=== PATIENT | female | born 1990 | race Caucasian/White ===

== ENCOUNTER → 2019-02-02 | Outpatient (CLI) | payer BC ==
[2019-02-02 12:06] LABS: Basophils % (A) 1 %; Eosinophils # (A) 0.1 k/uL (0-0.7); Eosinophils % (A) 3 %; HGB 13.7 gm/dL (11.4-16.0); Lymphocytes # (A) 1.5 k/uL (1.0-4.8); Lymphocytes % (A) 39 %; MCH 34.6 pg (25.0-35.0); MCHC 33.3 g/dL (31.0-37.0); MCV 103.7 fL (80.0-100.0); Macrocytosis Slight; Mean Platelet Volume 6.6; Monocytes # (A) 0.3 k/uL (0-1.0); Monocytes % (A) 7 %; Neutrophils # (A) 1.8 k/uL (1.3-7.7); Neutrophils % (A) 48 %; Platelet Count 269 k/uL (150-450); RBC 3.95 m/uL (3.80-5.40); RDW 12.3 % (11.5-15.5); WBC 3.8 k/uL (3.8-10.6)
[2019-02-02 16:15] LABS: African American GFR (CKD) 99.4 (60.0-200.0); Albumin 4.5 g/dL (3.80-4.90); Albumin/Globulin Ratio 2.5 (1.60-3.17); Anion Gap 6.8 mmol/L (4.00-12.00); BUN/Creat Ratio 11.11 Ratio (12.00-20.00); Calcium 9.4 mg/dL (8.7-10.3); Carbon Dioxide 25.2 mmol/L (21.6-31.8); Chol/HDL Ratio 2.55; Globulin 1.8 g/dL (1.6-3.3); Potassium 4.3 mmol/L (3.5-5.5); Total Bilirubin 0.4 mg/dL (0.2-1.2); Total Protein 6.3 g/dL (6.2-8.2)
[2019-02-02 20:14] LABS: Hemoglobin A1C 4.4 % (4.0-6.0)
== END | disposition home or self-care (01) ==
LOC: LABWHC1 11:29
DX: Z13.21 Encounter for screening for nutritional disorder (principal); Z13.29 Encounter for screening for other suspected endocrine disorder; Z13.220 Encounter for screening for lipoid disorders; F10.10 Alcohol abuse, uncomplicated
CPT/HCPCS: 36415; 80053; 80061; 82306; 83036; 84443; 85025

== ENCOUNTER 2021-03-02 10:08 | Inpatient (IN) | payer BC ==
[2021-03-02] MEDS ORDERED: AMPICILLIN 2,000 MG in SODIUM CHLORIDE 0.9% 100 ML IVPB STA (10:42)
[2021-03-02] MEDS ORDERED: CARBOPROST TROMETHAMINE 250 MCG/ML 1 ML AMP IM PRN (10:42)
[2021-03-02] MEDS ORDERED: METHYLERGONOVINE 0.2 MG/ML 1 ML AMP IM PRN (10:42)
[2021-03-02] MEDS ORDERED: LIDOCAINE 0.5% (PF) 5 MG/ML (50 ML SDV) SQ PRN (10:42)
[2021-03-02] MEDS ORDERED: TERBUTALINE 1 MG/ML VIAL SQ PRN (10:42)
[2021-03-02] MEDS ORDERED: OXYTOCIN 10 UNIT/ML 1 ML VIAL IM PRN (10:42)
[2021-03-02] MEDS ORDERED: OXYTOCIN 30 UNITS/500 ML NS 30 UNIT in SALINE 1 500ML.BAG IV SCH ×2 (10:45→22:30)
[2021-03-02] MEDS ORDERED: BUTORPHANOL 1 MG/ML 1 ML VIAL IV PRN (10:54)
--- NOTE | 2021-03-02 10:54 | P.HPOB ---
History of Present Illness H&P Date: 03/02/21 Chief Complaint: IUP at 40-2/7 weeks, spontaneous rupture of membranes This is a 30-year-old at 40-2/7 weeks that presents to labor and delivery with complaints of spontaneous rupture of membranes around 1 AM. Patient noted the fluid to be clear. Patient denies contractions. Patient has been receiving routine care since the first trimester, patient has a known history of anxiety and depression which has been stable on Zoloft and trazodone. Patient is known group beta strep positive. On bloodwork this patient has a blood type of O+, rubella status immune, RPR is nonreactive, hep Luisa surface engine negative, HIV negative. Patient did have a normal gestational diabetes screen on 11/26. She received T dap on 11/26. Group beta strep cultures were positive as of 02/04 as stated above. Review of Systems Constitutional: Denies chills, Denies fatigue, Denies fever Cardiovascular: Reports leg edema Respiratory: Denies dyspnea Gastrointestinal: Denies constipation, Denies diarrhea, Denies nausea, Denies vomiting Genitourinary: Reports Past Medical History History of Any Multi-Drug Resistant Organisms: None Reported Smoking Status: Never smoker Medications and Allergies Home Medications Medication Instructions Recorded Confirmed Type Sertraline [Zoloft] 100 mg PO DAILY 03/02/21 03/02/21 History traZODone HCL 100 mg PO DAILY 03/02/21 03/02/21 History Allergies Allergy/AdvReac Type Severity Reaction Status Date / Time No Known Allergies Allergy Verified 03/02/21 10:09 Exam Osteopathic Statement: *. No significant issues noted on an osteopathic structural exam other than those noted in the History and Physical/Consult. Intake and Output 03/01/21 03/02/21 03/02/21 22:59 06:59 14:59 Other: Weight 99.79 kg Targeted physical exam is performed and state in general this is a well- nourished well-developed female in no acute distress, breathing is nonlabored, heart has regular rhythm, abdomen is gravid. On cervical exam she is 1/thick/high station vertex presentation. In nature confirms rupture of membranes. heart tones are noted to be category 1 and she is gaurang irregularly with uterine irritability. Assessment and Plan (1) Post-dates Current Visit: Yes Status: Acute Code(s): O48.0 - POST-TERM SNOMED Code(s): 75709954 (2) Positive GBS test Current Visit: Yes Status: Acute Code(s): B95.1 - STREPTOCOCCUS, GROUP B, [facility] Code(s): 589557063 (3) SROM (spontaneous rupture of membranes) Current Visit: Yes Status: Acute Code(s): WHG3182 - SNOMED Code(s): 708685441 Plan: 30-year-old at 40-2/7 weeks that presents with spontaneous rupture of membranes around 1 AM. Patient is counseled on group beta strep status and need for antibiotics. Patient states understanding. Patient is also counseled on need for Pitocin augmentation of labor given she ruptured approximately 10 hours ago. Patient states understanding. Options for analgesia discussed, patient declines.
[2021-03-02 11:38] LABS: Basophils % (A) 0 %; Eosinophils # (A) 0.1 k/uL (0-0.7); Eosinophils % (A) 1 %; HCT 33.9 % (34.0-46.0); HGB 11.9 gm/dL (11.4-16.0); Lymphocytes % (A) 13 %; MCH 32.8 pg (25.0-35.0); MCHC 35.1 g/dL (31.0-37.0); MCV 93.3 fL (80.0-100.0); Monocytes # (A) 0.3 k/uL (0-1.0); Monocytes % (A) 4 %; Neutrophils # (A) 6.2 k/uL (1.3-7.7); Neutrophils % (A) 79 %; Platelet Count 257 k/uL (150-450); RBC 3.63 m/uL (3.80-5.40); RDW 13.6 % (11.5-15.5); WBC 7.8 k/uL (3.8-10.6)
[2021-03-02 11:42] VITALS: RESP 16
[2021-03-02] MEDS: LACTATED RINGERS 1,000 ML IV SCH ×3 (14:15→22:51)
[2021-03-02] MEDS: AMPICILLIN 1,000 MG in SODIUM CHLORIDE 0.9% 50 ML IVPB SCH ×2 (16:01→20:05)
[2021-03-02] MEDS ORDERED: CITRIC ACID-SODIUM CITRATE 15 ML CUP PO ONE (20:17)
[2021-03-02] MEDS ORDERED: MORPHINE SULFATE (PF) 0.3 MG/0.3 ML SYR ONE (21:26)
[2021-03-02] MEDS ORDERED: OXYTOCIN 30 UNITS/500 ML NS BAG IV ONE (21:26)
[2021-03-02] MEDS ORDERED: KETOROLAC 15 MG/ML 1 ML VIAL ONE (21:26)
[2021-03-02] MEDS ORDERED: diphenhydrAMINE 50 MG/ML 1 ML VIAL IVP PRN ×2 (22:17)
[2021-03-02] MEDS ORDERED: SIMETHICONE 80 MG CHEWABLE PO PRN (22:17)
[2021-03-02] MEDS ORDERED: NALOXONE 0.4 MG/ML 1 ML VIAL IV PRN (22:17)
[2021-03-02] MEDS ORDERED: ONDANSETRON 4 MG/2 ML VIAL IVP PRN (22:17)
[2021-03-02] MEDS ORDERED: diphenhydrAMINE 25 MG CAP PO PRN (22:17)
[2021-03-02] MEDS ORDERED: ZOLPIDEM 5 MG TAB PO PRN (22:17)
[2021-03-02] MEDS ORDERED: diphenhydrAMINE 50 MG CAP PO PRN (22:17)
[2021-03-02] MEDS ORDERED: METOCLOPRAMIDE 5 MG/ML 2 ML VIAL IVP PRN (22:17)
--- NOTE | 2021-03-02 22:23 | P.OP ---
Date of Procedure: 03/02/21 Preoperative Diagnosis: IUP at 40 and 2, spontaneous rupture of membranes, arrest of descent and dilation Postoperative Diagnosis: Same Procedure(s) Performed: Primary low transverse section Anesthesia: spinal Surgeon: Pati Osborne Business Programmer #1: Celi Avalos Estimated Blood Loss (ml): 785 IV fluids (ml): 1,200 Urine output (ml): 100 Pathology: other (Placenta) Condition: stable Disposition: observation Indications for Procedure: 30-year-old at 40-2/7 weeks that presented to labor and delivery with complaints of rupture of membranes around 1 AM. Patient presented to labor and delivery around 11 AM, complaining of spontaneous rupture but no contractions. Patient was admitted to labor and delivery antibiotics were begun secondary to length of time from rupture of membranes, and positive group beta strep culture. Pitocin augmentation of labor was begun. Patient made 1 cm pattern changer and repairer 8 hours. Patient is counseled on primary section secondary to arrest of descent and dilation. Although frustrated patient understands and is willing to proceed. Operative Findings: Normal uterus tubes and ovaries were appreciated. Viable female delivered at 2143, weight of 9 lbs. 2 oz., Apgars of 8 and 9 at one and 5 minutes respect daily. Description of Procedure: Patient was taken back to the operating suite where spinal anesthesia was found to be adequate by the anesthesia department. She was then prepped and draped in normal sterile fashion in the dorsal supine position. Calixto catheter was placed under sterile technique. A Pfannenstiel skin incision was made with the scalpel and carried through to the underlying layer of fascia. The fascia was then incised in the midline and the incision was extended laterally. The superior aspect the fascial incision was then grasped bhavna clamps, elevated and underlying rectus muscles dissected off sharply. The inferior aspect the fascial incision was then grasped bhavna clamps, elevated and underlying rectus muscles dissected off sharply. The rectus muscles were in the midline the peritoneum was identified and entered. The bladder blade was then inserted into the pelvis. The vesicouterine peritoneum was identified and a bladder flap was created using sharp and blunt dissection. The bladder blade was then reinserted into the pelvis. Hysterotomy incision was made with the scalpel, the infant was encountered in a vertex presentation, clear fluid was appreciated. The umbilical cord was doubly clamped and cut and the was handed handed off to awaiting RN. The placenta was then delivered spontaneously intact with a three-vessel cord being noted. The uterus was then exteriorized from the abdomen. The uterine incision was closed 0 Vicryl in a running locked fashion from one lateral edge the other. A second imbricating suture was performed. 2 [id number] sutures were used to obtain hemostasis on the left-hand side of the uterine incision. The uterus was then returned to the abdomen. The gutters were cleared of all clots and debris. Hysterotomy incision was inspected and hemostasis was appreciated. The peritoneum was then loosely reapproximated. The rectus muscles were inspected and found to be hemostatic. The fascia was then closed with 0 Vicryl in a running fashion from one lateral edge the midline and the other lateral edge the midline. The subcu tissue was then irrigated found to be hemostatic and closed with 3-0 Vicryl in a running fashion. The skin was then closed with 4-0 Vicryl in a subarticular fashion. Steri-Strips and sterile dressings were applied. All counts were noted to be correct 2 at the end of the procedure. Patient and tolerated delivery well and are resting comfortably.
[2021-03-02] MEDS: ACETAMINOPHEN IV (For NPO) 1,000 MG in EMPTY BAG 1 BAG IVPB SCH (22:44)
[2021-03-03] MEDS: LACTATED RINGERS 1,000 ML IV SCH ×2 (00:43→20:26)
[2021-03-03] MEDS: ACETAMINOPHEN TAB 500 MG TAB PO SCH ×2 (01:32→19:37)
[2021-03-03] MEDS: IBUPROFEN 600 MG TAB PO SCH ×3 (04:26→21:08)
[2021-03-03] MEDS: ACETAMINOPHEN IV (For NPO) 1,000 MG in EMPTY BAG 1 BAG IVPB SCH (05:06)
[2021-03-03] MEDS ORDERED: IBUPROFEN IV 800 MG in SODIUM CHLORIDE 0.9% 250 ML IV SCH (06:00)
[2021-03-03 08:14] LABS: Basophils % (A) 0 %; Eosinophils # (A) 0.1 k/uL (0-0.7); Eosinophils % (A) 1 %; HCT 29.2 % (34.0-46.0); Lymphocytes # (A) 1.1 k/uL (1.0-4.8); Lymphocytes % (A) 11 %; MCH 32.5 pg (25.0-35.0); MCHC 33.5 g/dL (31.0-37.0); MCV 97.1 fL (80.0-100.0); Mean Platelet Volume 7.3; Monocytes # (A) 0.4 k/uL (0-1.0); Monocytes % (A) 4 %; Neutrophils # (A) 8.2 k/uL (1.3-7.7); Neutrophils % (A) 83 %; Platelet Count 193 k/uL (150-450); RBC 3.01 m/uL (3.80-5.40); RDW 13.2 % (11.5-15.5); WBC 9.9 k/uL (3.8-10.6)
[2021-03-03 08:21] LABS: HGB 9.8 gm/dL (11.4-16.0)
[2021-03-03] MEDS ORDERED: SERTRALINE 100 MG TAB PO SCH ×2 (09:00→21:00)
[2021-03-03] MEDS ORDERED: traZODone HCL 100 MG TAB PO SCH ×2 (09:00→21:00)
--- NOTE | 2021-03-03 09:00 | P.PN ---
Progress Note - Text Progress Note Date: 03/03/21 (131) Anesthesia Postop day 1 Subjective: Status Post section with Duramorph. Patient seen and examined. Doing well without complaint. VAS out of 10. No nausea or vomiting. Mild pruritus tolerable.. Afebrile. Gross lower extremity strength intact. Without apparent anesthetic complications. Objective: Vital signs reviewed Heart: Regular Rate Lungs: Good chest excursion Abdomen: Appears nondistended Assessment: Status post with Duramorph postop day 1 Plan: Continue current care with your medical management. Anticipated and the Duramorph around midnight tonight, you may see increased pain needs around this time.
--- NOTE | 2021-03-03 10:53 | P.PNOBGPC ---
Subjective - Subjective Patient reports: Reports appetite normal, Reports voiding normally, Reports pain well controlled, Reports ambulating normally : doing well Objective - Vital Signs Latest vital signs: Vital Signs Temp Pulse Resp BP Pulse Ox 03/03/21 09:00 98.3 F 91 16 107/69 97 03/03/21 04:00 98.6 F 87 16 110/72 03/03/21 00:30 86 16 114/56 99 03/03/21 00:02 96.9 F L 80 16 103/56 99 03/02/21 23:32 86 16 114/56 99 03/02/21 23:02 96 16 118/56 03/02/21 22:51 100 16 115/55 03/02/21 22:32 110 H 16 108/54 03/02/21 22:18 97.3 F L 103 H 16 108/53 99 03/02/21 11:20 98.3 F 100 16 123/62 Intake and Output 03/02/21 03/03/21 03/03/21 22:59 06:59 14:59 Intake Total 1700 Output Total 100 930 Balance 1600 -930 Intake: IV 1700 Output: Urine 100 900 Uretheral (Calixto) 400 Estimated Blood Loss 30 Other: # Voids 1 1 - Exam Abdomen: Present: normal appearance, soft. Absent: distention, tenderness Incision: Present: normal, dry, intact Uterus: Present: normal, firm (The uterine fundus as tonic and minimally tender below the umbilicus.) - Labs Labs: Abnormal Lab Results - Last 24 Hours (Table) 03/02/21 03/03/21 Range/Units 11:00 07:28 RBC 3.63 L 3.01 L (3.80-5.40) m/uL Hgb 9.8 L D (11.4-16.0) gm/dL Hct 33.9 L 29.2 L (34.0-46.0) % Neutrophils # 8.2 H (1.3-7.7) k/uL Assessment and Plan (1) Status post section Current Visit: Yes Status: Acute Code(s): Z98.891 - HISTORY OF UTERINE SCAR FROM PREVIOUS SURGERY SNOMED Code(s): 036534833 Plan: Continue routine postoperative and care. I have encouraged patient alessandra in the hallways the today at least 4 times if not more. I would anticipate discharge home tomorrow possibly pending no complications.
[2021-03-03] MEDS: SENNOSIDES-DOCUSATE SODIUM 1 EACH TAB PO SCH ×2 (15:10→19:37)
[2021-03-04] MEDS: ACETAMINOPHEN TAB 500 MG TAB PO SCH ×2 (01:53→12:01)
[2021-03-04] MEDS: SENNOSIDES-DOCUSATE SODIUM 1 EACH TAB PO SCH (07:43)
[2021-03-04] MEDS: IBUPROFEN 600 MG TAB PO SCH (07:43)
[2021-03-04 08:26] VITALS: BP 107/62; PULSE 88; TEMP 97.9
--- NOTE | 2021-03-04 09:31 | P.DS ---
Providers Date of admission: 03/02/21 10:45 Expected date of discharge: 03/04/21 Attending physician: Norma Hart Primary care physician: Stated None Hospital Course: This is a 30-year-old female 2 para 0010 EDC 02/28/2021 who presented at 40-2/7 weeks' with spontaneous amniorrhexis, clear fluid, in active labor. is remarkable for rubella status immune, blood type A+, group B strep cultures positive. Please see dictated history and physical for details. Antibiotic prophylaxis was started as well as oxytocin. Patient progressed through labor but had a failure to progress and decision was made to proceed with primary low transverse section. She gave to a liveborn female with scores of 8 and 9 at one and 5 minutes respectively. weighed 9 lbs. 2 oz. or 4150 g. Patient had received at least 3 doses of antibiotics prophylactically. Please see dictated operative note for details. This morning the patient is doing quite well. She is voiding, ambulating, passing flatus without difficulty. Vital signs are stable and she is afebrile. Incision is clean and dry, intact, Steri-Strips applied. Fundus is firm and in the midline, symmetric and 18 week size. Breasts are not engorged. Chest is clear in all barrow. Extremities are negative. Hurst infant is doing well, hearing test this morning. Enterprise Resource Planning Consultant has seen the baby. Patient is judged to be in very good condition for discharge home. She will follow-up with me in the office in 2 weeks for an incision check. I have reminded her no intercourse, tampons or douching. She will use [id number] Advil or Aleve, or Motrin as needed for pain. She will call with any fevers shakes or chills, foul smelling or copious lochia, with the passage of large blood clots, with any pain not alleviated by [id number]-[id number] products, or indeed with any concerns. Hurst infant will follow-up with hot roll laminator as per recommendations. Assessment: Doing well second postoperative day Patient Condition at Discharge: Good Plan - Discharge Summary Discharge Rx Participant: No New Discharge Prescriptions: No Action traZODone HCL 100 mg PO DAILY Sertraline [Zoloft] 100 mg PO DAILY Discharge Medication List Sertraline [Zoloft] 100 mg PO DAILY 03/02/21 [History] traZODone HCL 100 mg PO DAILY 03/02/21 [History] Follow up Appointment(s)/Referral(s): Norma Hart MD [STAFF PHYSICIAN] - 2 Weeks Discharge Disposition: HOME SELF-CARE
== END 2021-03-04 12:55 | disposition home or self-care (01) | DRG 788 ==
LOC: FBPOP 10:08 → 4FBP 10:45
PROVIDERS: ADMIT Obstetrics & Gynecology Obstetrics; ATTEND Obstetrics & Gynecology
PROC: 0KQM0ZZ Repair Perineum Muscle, Open Approach (ICD-10-PCS; 2021-03-02)
PROC: 3E033VJ Introduction of Other Hormone into Peripheral Vein, Percutaneous Approach (ICD-10-PCS; 2021-03-02)
PROC: 10D00Z1 Extraction of Products of Conception, Low, Open Approach (ICD-10-PCS; principal; 2021-03-02 21:00)
DX: O62.0 Primary inadequate contractions (principal); O48.0 Post-term pregnancy; O70.1 Second degree perineal laceration during delivery; O99.824 Streptococcus B carrier state complicating childbirth; O99.73 Diseases of the skin and subcutaneous tissue complicating the puerperium; L29.9 Pruritus, unspecified; Z20.822 Contact with and (suspected) exposure to COVID-19; O99.343 Other mental disorders complicating pregnancy, third trimester; F41.9 Anxiety disorder, unspecified; F32.9 Major depressive disorder, single episode, unspecified; Z37.0 Single live birth; Z3A.40 40 weeks gestation of pregnancy; Z79.899 Other long term (current) drug therapy
CPT/HCPCS: 59025; 84112; 85025; 86850; 86900; 86901; 99213

== ENCOUNTER → 2021-10-18 | Outpatient (CLI) | payer BC ==
--- NOTE | 2021-10-18 14:06 | XR ---
EXAMINATION TYPE: XR lumbar spine 2 or 3V DATE OF EXAM: 10/18/2021 CLINICAL HISTORY: pain TECHNIQUE: Three views of the lumbar spine are submitted. COMPARISON: None. FINDINGS: There are 5 lumbar type vertebral bodies identified. The lumbar spine shows satisfactory alignment w ithout evidence of acute fracture or dislocation. Vertebral body heights are within normal limits. Moderate degenerative narrowing L5-S1. Ventral spondylosis. The overlying soft tissue appears unrema rkable. IMPRESSION: No acute fracture or dislocation is seen in the lumbar spine. ICD 10 NO FRACTURE, INITIAL EVALUATION
== END | disposition home or self-care (01) ==
LOC: RADXRMAIN 12:57
PROVIDERS: ATTEND Family Medicine
DX: M43.06 Spondylolysis, lumbar region (principal)
CPT/HCPCS: 72100

== ENCOUNTER 2024-08-04 08:35 | Outpatient (CLI) | payer BC ==
[2024-08-04 10:00] VITALS: BP 127/71; PULSE 110; RESP 18; TEMP 97.7
== END 2024-08-04 09:47 | disposition home or self-care (01) ==
LOC: FBPOP 08:35
PROVIDERS: ATTEND Obstetrics & Gynecology
DX: Z53.9 Procedure and treatment not carried out, unspecified reason (principal)
CPT/HCPCS: 59025; 99213

== ENCOUNTER 2024-08-17 10:08 | Outpatient (CLI) | payer BC ==
[2024-08-17 10:40] LABS: Basophils % (A) 0 %; Eosinophils # (A) 0.2 k/uL (0-0.7); Eosinophils % (A) 2 %; HCT 33.8 % (34.0-46.0); HGB 10.7 gm/dL (11.4-16.0); Lymphocytes # (A) 1.5 k/uL (1.0-4.8); Lymphocytes % (A) 13 %; MCH 29.2 pg (25.0-35.0); MCHC 31.5 g/dL (31.0-37.0); MCV 92.7 fL (80.0-100.0); Monocytes # (A) 0.4 k/uL (0-1.0); Monocytes % (A) 4 %; Neutrophils # (A) 8.7 k/uL (1.3-7.7); Neutrophils % (A) 79 %; Platelet Count 308 k/uL (150-450); RBC 3.65 m/uL (3.80-5.40); RDW 15.1 % (11.5-15.5)
[2024-08-17 10:47] LABS: Appearance,Urine Cloudy (Clear); Bacteria,Urine Rare /hpf; Bilirubin,Urine Negative (Negative); Blood,Urine Negative (Negative); Color,Urine Light Yellow; Glucose,Urine (UA) Negative (Negative); Ketones,Urine Negative (Negative); Leukocyte Esterase,Urine Large (Negative); Mucus,Urine Rare /hpf; Nitrite,Urine Negative (Negative); Protein,Urine Trace (Negative); RBC,Urine 4 /hpf (0-5); Specific Gravity,Urine 1.014 (1.001-1.035); Squamous Epithelial Cell,Urine 6 /hpf (0-4); Urobilinogen,Urine <2.0 mg/dL (<2.0); WBC,Urine 15 /hpf (0-5)
[2024-08-17 10:51] LABS: ALT 15 U/L (4-34); AST 17 U/L (14-36); African American GFR (CKD) >90 (>60 ml/min/1.73 sqM); Blood Urea Nitrogen 9 mg/dL (7-17); LDH 127 U/L (120-246); Non-African American GFR(CKD) >90 (>60 ml/min/1.73 sqM); Uric Acid 3.8 mg/dL (3.7-7.4)
[2024-08-17 11:03] LABS: Creatinine,Urine Random 94.6 mg/dL; Protein/Creatinine Ratio,Urine 0.106
[2024-08-17 11:04] LABS: Creatinine,Urine Random 95.9 mg/dL
[2024-08-17 11:39] VITALS: BP 131/77; PULSE 99; RESP 16; TEMP 97.1
== END 2024-08-17 11:20 | disposition home or self-care (01) ==
LOC: FBPOP 10:08
PROVIDERS: ATTEND Obstetrics & Gynecology
DX: O13.9 Gestational [pregnancy-induced] hypertension without significant proteinuria, unspecified trimester (principal); Z3A.00 Weeks of gestation of pregnancy not specified
CPT/HCPCS: 59025; 81001; 82565; 82570; 83615; 84156; 84450; 84460; 84520; 84550; 85025

== ENCOUNTER 2024-08-28 08:46 | Outpatient (CLI) | payer BC ==
[2024-08-28 09:07] VITALS: BP 121/66; RESP 18; TEMP 97.2
--- NOTE | 2024-08-28 09:46 | US ---
EXAMINATION TYPE: US OB limited DATE OF EXAM: 08/28/2024 COMPARISON: NONE CLINICAL INDICATION: Female, 34 years old with history of MORENITA; Patient felt leaking sensation, test i n FBP came back negative for amniotic fluid TECHNIQUE:: OBTA FINDINGS: GESTATIONAL AGE / DATING Physician Established: (39 weeks/3 days) EDC: 09/01/2024 No growth performed on today?s study per ordering physician SURVEY MORENITA: 25.3 cm Polyhydraminos Ultrasound evidence of premature rupture of membranes? no HEART RATE: 123 bpm RHYTHM: Normal Single live intrauterine gestation redemonstrated. IMPRESSION: As above. No ultrasound evidence for premature rupture of membranes. [facility], , 08/28/2024 9:44 AM
[2024-08-28 09:54] VITALS: PULSE 123
== END 2024-08-28 09:42 | disposition home or self-care (01) ==
LOC: FBPOP 08:46
PROVIDERS: ATTEND Obstetrics & Gynecology
DX: Z36.9 Encounter for antenatal screening, unspecified (principal); Z3A.39 39 weeks gestation of pregnancy
CPT/HCPCS: 59025; 76815; 84112; 99213

== ENCOUNTER 2024-08-30 10:55 | Inpatient (IN) | payer BC ==
[2024-08-30] MEDS ORDERED: CARBOPROST TROMETHAMINE 250 MCG/ML 1 ML AMP IM PRN (11:34)
[2024-08-30] MEDS ORDERED: METHYLERGONOVINE 0.2 MG/ML 1 ML AMP IM PRN (11:34)
[2024-08-30] MEDS ORDERED: miSOPROStoL 200 MCG TAB PO PRN (11:34)
[2024-08-30] MEDS ORDERED: LIDOCAINE 0.5% (PF) 5 MG/ML (50 ML SDV) SQ PRN (11:34)
[2024-08-30] MEDS ORDERED: miSOPROStoL 200 MCG TAB RECTAL PRN (11:34)
[2024-08-30] MEDS ORDERED: TERBUTALINE 1 MG/ML VIAL SQ PRN (11:34)
[2024-08-30] MEDS ORDERED: TRANEXAMIC 1,000 MG/100ML-NACL 1,000 MG in EMPTY BAG 1 BAG IV PRN (11:34)
[2024-08-30] MEDS ORDERED: OXYTOCIN 10 UNIT/ML 1 ML VIAL IM PRN (11:34)
[2024-08-30] MEDS: OXYTOCIN 30 UNITS/500 ML NS 30 UNIT in SALINE 1 500ML.BAG IV SCH (11:48)
[2024-08-30] MEDS: LACTATED RINGERS 1,000 ML IV SCH (11:48)
[2024-08-30 12:21] LABS: Basophils % (A) 0 %; Eosinophils # (A) 0.1 k/uL (0-0.7); Eosinophils % (A) 1 %; HCT 33.2 % (34.0-46.0); HGB 10.9 gm/dL (11.4-16.0); Lymphocytes # (A) 1.2 k/uL (1.0-4.8); Lymphocytes % (A) 12 %; MCH 29.9 pg (25.0-35.0); MCHC 32.8 g/dL (31.0-37.0); Mean Platelet Volume 7.4; Monocytes # (A) 0.4 k/uL (0-1.0); Monocytes % (A) 4 %; Neutrophils # (A) 8.6 k/uL (1.3-7.7); Neutrophils % (A) 82 %; Platelet Count 230 k/uL (150-450); RBC 3.65 m/uL (3.80-5.40); RDW 15.6 % (11.5-15.5); WBC 10.4 k/uL (3.8-10.6)
--- NOTE | 2024-08-30 13:10 | P.HPOB ---
History of Present Illness H&P Date: 08/30/24 Chief Complaint: Leaking of fluid Ms. Kuhn is a 34 year old at 39 weeks and 5 days who presents with spontaneous rupture of membranes this morning revealing clear amniotic fluid. The has been complicated by maternal depression for which she takes trazadone, sertraline, and quetiapine managed by her PCP. There was also transient polyhydramnios in the which resolved. The fetus is to be 8#8oz extrapolated from a 37 week growth US. This will be a TOLAC, as requested by the patient. Obstetric history: 1 FTCS due to failed induction after SROM, baby 9#5oz work-up: blood type A positive, antibody screen negative, rubella immune, VDRL non-reactive, HBsAg negative, HIV negative, HCV Ab non-reactive, gonorrhea negative, chlamydia negative, 1 hour GTT wnl, GBS negative Past Medical History Past Medical History: No Reported History History of Any Multi-Drug Resistant Organisms: None Reported Past Surgical History: No Surgical Hx Reported Past Anesthesia/Blood Transfusion Reactions: No Reported Reaction Smoking Status: Never smoker - Past Family History Father Family Medical History: No Reported History Medications and Allergies Home Medications Medication Instructions Recorded Confirmed Type Sertraline [Zoloft] 100 mg PO DAILY 03/02/21 08/30/24 History Fluticasone Propion/Salmeterol 2 puff INHALATION BID 08/04/24 08/30/24 History [Advair Hfa 45-21 Mcg Inhaler] QUEtiapine [SEROquel] 25 mg PO DAILY 08/04/24 08/30/24 History Montelukast [Singulair] 10 mg PO DAILY 08/28/24 08/30/24 History traZODone HCL 100 mg PO DAILY 08/28/24 08/30/24 History Allergies Allergy/AdvReac Type Severity Reaction Status Date / Time No Known Allergies Allergy Verified 08/30/24 11:04 Exam Intake and Output 08/29/24 08/30/24 08/30/24 22:59 06:59 14:59 Other: Weight 106.594 kg Focused physical exam is performed. This is a healthy-appearing in no apparent distress. Breathing is non-labored. Abdomen is gravid and non-tender. Cervical exam is 50/-3 per OB RN. Extremities non-tender and non-edematous. heart tones are Category I and tocometer is graphing irregular contractions. Results Result Diagrams: 08/30/24 11:40 Abnormal Lab Results - Last 24 Hours (Table) 08/30/24 Range/Units 11:40 RBC 3.65 L (3.80-5.40) m/uL Hgb 10.9 L (11.4-16.0) gm/dL Hct 33.2 L (34.0-46.0) % RDW 15.6 H (11.5-15.5) % Neutrophils # 8.6 H (1.3-7.7) k/uL Assessment and Plan Assessment: 34 year old at 39 weeks and 5 days presenting with SROM, plans TOLAC Plan: Admit, clear liquid diet, pitocin induction of labor, dilapan x12 hours. Continuous EFM and tocometer. We have discussed the risks of tolac including ~1% change of uterine rupture with Pitocin induction of labor. She understands these risks and desires to proceed.
--- NOTE | 2024-08-30 13:12 | P.PCN ---
Date of Procedure: 08/30/24 Preoperative Diagnosis: 1. SROM 2. Low medina score 3. TOLAC Postoperative Diagnosis: Same Procedure(s) Performed: Dilapan-S insertion Implants: Dilapan-S x5 rods Anesthesia: none Surgeon: Nicci Holbrook Estimated Blood Loss (ml): 50 IV fluids (ml): 0 Urine output (ml): 0 Pathology: none sent Condition: stable Disposition: floor Indications for Procedure: Ms. Kuhn is a 34 year old presenting with SROM, hoping to TOLAC but has an unfavorable cervix. Operative Findings: Dilapan-S properly placed Description of Procedure: The risks (including bleeding, infection, ruptured membranes, onset of labor, cervical tears or Dilapan-S breaking) and benefits of the procedure were discussed with the patient. Written informed consent was obtained. A sterile lighted speculum was placed into the vagina and the cervix was visualized. The cervix and vagina was cleaned with antiseptic solution. A forcep was used to grasp the cervical lip to straighten the cervical canal another ring forcep was used to grasp the handle of the Dilapan-S arjun and insert the arjun through the external cervical os gradually and without force. This was repeated until adequate Dilapan-S rods were inserted. A total number of 5 rods were inserted. At the conclusion of the procedure the vaginal bleeding had resolved. The speculum and instruments were removed.
[2024-08-30] MEDS: NALBUPHINE 10 MG/ML (10 ML MDV) IV PRN (16:50)
[2024-08-30] MEDS ORDERED: fentaNYL (PF) 50 MCG/ML 5 ML AMP ONE (19:43)
[2024-08-30] MEDS ORDERED: SODIUM CHLORIDE 0.9% 250 ML BAG ONE (19:43)
[2024-08-30] MEDS ORDERED: ROPIVACAINE 5 MG/ML 30 ML VIAL ONE (19:43)
[2024-08-31] MEDS: AMPICILLIN 2,000 MG in SODIUM CHLORIDE 0.9% 100 ML IVPB ONE (00:41)
[2024-08-31] MEDS ORDERED: GENTAMICIN PER PHARMACY MISCELLANE PRN (01:00)
[2024-08-31] MEDS: GENTAMICIN 200 MG in SODIUM CHLORIDE 0.9% 100 ML IVPB SCH (01:24)
[2024-08-31] MEDS: AMPICILLIN 1,000 MG in SODIUM CHLORIDE 0.9% 50 ML IVPB SCH (04:49)
[2024-08-31] MEDS ORDERED: BENZOCAINE/MENTHOL SPRAY 1 GM/SPRAY AEROSOL TOPICAL PRN (11:12)
[2024-08-31] MEDS ORDERED: diphenhydrAMINE 25 MG CAP PO PRN (11:12)
[2024-08-31] MEDS ORDERED: HYDROCORTISONE 2.5% RECTAL CREAM 30 GM TUBE RECTAL PRN (11:12)
[2024-08-31] MEDS ORDERED: LANOLIN CREAM 1 GM TUBE TOPICAL PRN (11:12)
[2024-08-31] MEDS ORDERED: SIMETHICONE 80 MG CHEWABLE PO PRN (11:12)
[2024-08-31] MEDS ORDERED: diphenhydrAMINE 50 MG CAP PO PRN (11:12)
[2024-08-31] MEDS ORDERED: ZOLPIDEM 5 MG TAB PO PRN (11:12)
[2024-08-31] MEDS ORDERED: diphenhydrAMINE 50 MG/ML 1 ML VIAL IVP PRN ×2 (11:12)
--- NOTE | 2024-08-31 11:17 | P.PROBDLV ---
Vaginal Delivery Note - . Vaginal Delivery Note: DATE OF SERVICE: 08/31/2024 PROCEDURE: Vaginal After Section ATTENDING: Dr. Nicci Holbrook MD ESTIMATED BLOOD LOSS: 400 mL FINDINGS: VFI, Apgars 7/8. Weight 9 pounds and 1 ounce (4100 grams) PROCEDURE: Ms. Kuhn is a 34 year old at 39 weeks and 5 days presenting to labor and delivery for SROM at 0700 on 08/30. The has been complicated by a prior section, so this was a TOLAC. For further details, please review the admitting H&P. Pitocin was titrated per protocol. The patient received epidural anesthesia per her request. The patient was completely dilated at 700. She pushed effectively with with Catgeory I to II heart tones. A viable female infant was delivered at 1048. The was placed on the maternal abdomen and bulb suctioned. Cord was clamped and cut after a 30- second delay. The was handed off to the pediatric team. Placenta was delivered whole with gentle cord traction at 1052. Oxytocin was started to facilitate uterine tone. Uterine fundus was found to be firm and below the umbil icus upon fundal massage. Thorough examination of the cervix, vagina, periurethral area, and perineum revealed a second degree perineal laceration. This area was infiltrated with lidocaine and repaired with 2-0 and 3-0 Vicryl in the usual fashion. The patient is stable and allowed to begin the bonding process.
[2024-08-31] MEDS: IBUPROFEN 800 MG TAB PO SCH ×2 (11:28→14:50)
[2024-08-31 12:43] VITALS: RESP 16
[2024-08-31] MEDS: ACETAMINOPHEN TAB 500 MG TAB PO SCH (15:50)
[2024-08-31] MEDS: SENNOSIDES-DOCUSATE SODIUM 1 EACH TAB PO SCH (21:15)
[2024-09-01 06:42] LABS: Anisocytosis Slight; Basophils % (A) 0 %; Eosinophils # (A) 0.1 k/uL (0-0.7); Eosinophils % (A) 1 %; HCT 27.4 % (34.0-46.0); Lymphocytes # (A) 1.9 k/uL (1.0-4.8); Lymphocytes % (A) 16 %; MCH 30.2 pg (25.0-35.0); MCV 94.3 fL (80.0-100.0); Mean Platelet Volume 8.1; Monocytes # (A) 0.5 k/uL (0-1.0); Monocytes % (A) 4 %; Neutrophils # (A) 8.7 k/uL (1.3-7.7); Neutrophils % (A) 77 %; Platelet Count 219 k/uL (150-450); RBC 2.91 m/uL (3.80-5.40); RDW 16.1 % (11.5-15.5); WBC 11.3 k/uL (3.8-10.6)
[2024-09-01 06:51] LABS: HGB 8.8 gm/dL (11.4-16.0)
--- NOTE | 2024-09-01 08:21 | P.DS ---
Providers Date of admission: 08/30/24 11:22 Expected date of discharge: 09/01/24 Attending physician: Nicci Holbrook MD Primary care physician: Stated None Hospital Course: Ms. Kuhn is a 34 year old PPD#1 s/p . The patient is doing well this morning and had no acute events overnight. She has no complaints this morning. She reports minimal lochia, passing flatus, voiding without difficulty, ambulating, and eating/drinking without nausea or vomiting. doing well at bedside, breast feeding is going well. She denies chest pain, shortness of breathing, fevers, or chills overnight. She denies pain or swelling in the legs. restrictions are reviewed with the patient including pelvic rest for 6 weeks. The patient is encouraged to call the office if she experiences any heavy bleeding, foul-smelling discharge, breast complaints, or any if she has any other concerns. She will follow up in the office with in 6 weeks for exam. All questions are answered. Patient Condition at Discharge: Good Plan - Discharge Summary New Discharge Prescriptions: No Action QUEtiapine [SEROquel] 25 mg PO DAILY Montelukast [Singulair] 10 mg PO DAILY Sertraline [Zoloft] 100 mg PO DAILY Fluticasone Propion/Salmeterol [Advair Hfa 45-21 Mcg Inhaler] 2 puff INHALATION BID traZODone HCL 100 mg PO DAILY Discharge Medication List Sertraline [Zoloft] 100 mg PO DAILY 03/02/21 [History] Fluticasone Propion/Salmeterol [Advair Hfa 45-21 Mcg Inhaler] 2 puff INHALATION BID 08/04/24 [History] QUEtiapine [SEROquel] 25 mg PO DAILY 08/04/24 [History] Montelukast [Singulair] 10 mg PO DAILY 08/28/24 [History] traZODone HCL 100 mg PO DAILY 08/28/24 [History] Follow up Appointment(s)/Referral(s): Nicci Holbrook MD [STAFF PHYSICIAN] - 10/04/24 1:15 pm Activity/Diet/Wound Care/Special Instructions: Instructions 1. Do not begin any exercise program for 3 weeks. 2. Do not resume sexual relations for 6 weeks or longer if uncomfortable. 3. You may take tub baths or showers at any time. 4. You may use tampons if desired after 6 weeks. 5. Keep any areas repaired with stitches clean and dry. 6. If you are not nursing, wear a good fitting, supportive bra during the day and limit fluid intake for at least 1 week to prevent breast engorgement. 7. Call the office, , within the next week to make appointment for your 6 week checkup if it has not already been made. 8. Report any of the following occurrences to the doctor promptly: a. Heavy, excessive bleeding b. Chills, fever c. Burning or frequency of urination d. Pain or redness and breasts if nursing e. Increasing pain or swelling of vulva (stitches). In addition to the above instructions, the following additional should be followed: 1. No heavy lifting or straining (exercising) until after 6 week checkup. 2. Keep abdominal incision clean and dry: You may wear a dressing if more comfortable. 3. Make office appointment for 2 weeks after delivery date. Discharge Disposition: HOME SELF-CARE
[2024-09-01 09:02] VITALS: BP 122/75; PULSE 75; TEMP 98.2
[2024-09-01] MEDS ORDERED: FERROUS SULFATE 325 MG TAB PO SCH (12:30)
== END 2024-09-01 11:50 | disposition home or self-care (01) | DRG 807 ==
LOC: FBPOP 10:55 → 4FBP 11:22
PROVIDERS: ADMIT Obstetrics & Gynecology; ATTEND Obstetrics & Gynecology
PROC: 10E0XZZ Delivery of Products of Conception, External Approach (ICD-10-PCS; principal; 2024-08-31)
PROC: 0KQM0ZZ Repair Perineum Muscle, Open Approach (ICD-10-PCS; 2024-08-31)
PROC: 3E0P7VZ Introduction of Hormone into Female Reproductive, Via Natural or Artificial Opening (ICD-10-PCS; 2024-08-31)
PROC: 3E033VJ Introduction of Other Hormone into Peripheral Vein, Percutaneous Approach (ICD-10-PCS; 2024-08-31)
DX: O34.219 Maternal care for unspecified type scar from previous cesarean delivery (principal); Z37.0 Single live birth; O99.344 Other mental disorders complicating childbirth; F32.A Depression, unspecified; O70.1 Second degree perineal laceration during delivery; Z3A.39 39 weeks gestation of pregnancy; Z79.899 Other long term (current) drug therapy; Z87.59 Personal history of other complications of pregnancy, childbirth and the puerperium
CPT/HCPCS: 59025; 59200; 84112; 85025; 86850; 86900; 86901; 99213